=== PATIENT | female | born 1940 | race Caucasian/White ===

== ENCOUNTER 2016-07-19 22:32 | Inpatient (IN) | payer OTHER, MEDICARE ==
--- NOTE | 2016-07-19 22:34 | ED Physician Chart ---
Chief Complaint/HPI - Patient Information Date Seen:: 07/19/16 Time Seen:: 22:34 Chief Complaint:: high blood pressure History of Present Illness:: 75-year-old female with history of high blood pressure, complains of acute, severe, elevated blood pressure that she noticed about one hour ago. Took what may have been lisinopril 10 mg about 30 minutes prior to arrival but the elevated blood pressure has persisted. He also has associated acute, severe, 10 out of 10, nonradiating, headache 1 hour. Also has some slight chest pain and dizziness. Denies nausea, vomiting, acute vision changes, diaphoresis. Historian:: Patient Review:: Nurse's Note Reviewed Review of Systems - Review of Systems Other: Complete system review otherwise unremarkable except as noted in history of present illness. Past Medical History - Past Medical History Past Medical History: HTN, Other (history of colon cancer) Family History: None Social History: Non Smoker, No Alcohol, No Drug Use, Other Surgical History: other (bilateral cataract surgery) Psychiatricy History: None Medication: Reviewed Family Medical History - Family Member Mother History Unknown: Yes Ethnicity: Living Status: Physical Exam - Physical Examination Other:: INITIAL VITAL SIGNS: Reviewed by me GENERAL: Alert and interactive. No acute distress HEAD: Head is normocephalic and atraumatic EYES: EOMI. PERRL. No scleral icterus. No conjunctival injection ENT: Moist mucous membranes. NECK: Supple. No masses. Full range of motion RESPIRATORY: No tachypnea. Clear breath sounds bilaterally. No wheezing, rales, or rhonchi CV: Regular rate and rhythm. No murmurs, rubs, or gallops ABDOMEN: Soft, non-distended, non-tender. No guarding. No rebound. No masses. EXTREMITIES: No deformity. No cyanosis. No edema. SKIN: Warm and dry. No obvious rashes. NEUROLOGIC: Alert and oriented. Face is symmetric. Speech is normal. Moves all extremities equally. Motor and sensory distally intact. Labs/Radiology/EKG Results - Lab Results Results: Lab Results 07/19/16 07/19/16 07/19/16 Range/Units 22:45 22:45 22:45 WBC 7.4 (4.8-10.8) Th/cmm RBC 3.92 (3.80-5.20) Mil/cmm Hgb 13.2 (11.7-16.1) gm/dL Hct 39.7 (35.0-45.0) % MCV 101.2 H (81-100) fl MCH 33.6 H (27.0-31.0) pg MCHC Differential 33.2 (28.0-36.0) pg RDW 12.2 (11.5-20.0) % Plt Count 187 (150-400) Th/cmm MPV 8.4 fl Neutrophils % 36.3 L (40.0-80.0) % Lymphocytes % 51.3 H (20.0-50.0) % Monocytes % 10.9 H (2.0-10.0) % Eosinophils % 1.2 (0.0-5.0) % Basophils % 0.3 (0.0-2.0) % PT 9.8 (9.5-11.5) SECONDS INR 0.94 (0.5-1.4) Sodium 134 L (136-145) mEq/L Potassium 3.6 (3.5-5.1) mEq/L Chloride 100 (98-107) mEq/L Carbon Dioxide 27.7 (21.0-31.0) mEq/L Anion Gap 9.9 (7.0-16.0) BUN 19 (7-25) mg/dL Creatinine 0.7 (0.6-1.2) mg/dL Est GFR ( Amer) TNP Est GFR (Non-Af Amer) TNP BUN/Creatinine Ratio 27.1 Glucose 131 H (70-105) mg/dL Calcium 10.1 (8.6-10.3) mg/dL Total Bilirubin 0.4 (0.3-1.0) mg/dL AST 52 H (13-39) U/L ALT 61 H (7-52) U/L Alkaline Phosphatase 109 H (34-104) U/L Creatine Kinase 240 H (30-223) U/L Troponin I (0.01-0.05) ng/mL B-Natriuretic Peptide (5.0-100.0) pg/mL Total Protein 7.9 (6.0-8.3) gm/dL Albumin 4.4 (3.7-5.3) gm/dL Globulin 3.5 gm/dL Albumin/Globulin Ratio 1.3 (1.0-1.8) Triglycerides 166 H (<150) mg/dL Cholesterol 169 (<200) mg/dL LDL Cholesterol Direct 102 (75-193) mg/dL HDL Cholesterol 52 (23-92) mg/dL 07/19/16 Range/Units 22:45 WBC (4.8-10.8) Th/cmm RBC (3.80-5.20) Mil/cmm Hgb (11.7-16.1) gm/dL Hct (35.0-45.0) % MCV (81-100) fl MCH (27.0-31.0) pg MCHC Differential (28.0-36.0) pg RDW (11.5-20.0) % Plt Count (150-400) Th/cmm MPV fl Neutrophils % (40.0-80.0) % Lymphocytes % (20.0-50.0) % Monocytes % (2.0-10.0) % Eosinophils % (0.0-5.0) % Basophils % (0.0-2.0) % PT (9.5-11.5) SECONDS INR (0.5-1.4) Sodium (136-145) mEq/L Potassium (3.5-5.1) mEq/L Chloride (98-107) mEq/L Carbon Dioxide (21.0-31.0) mEq/L Anion Gap (7.0-16.0) BUN (7-25) mg/dL Creatinine (0.6-1.2) mg/dL Est GFR ( Amer) Est GFR (Non-Af Amer) BUN/Creatinine Ratio Glucose (70-105) mg/dL Calcium (8.6-10.3) mg/dL Total Bilirubin (0.3-1.0) mg/dL AST (13-39) U/L ALT (7-52) U/L Alkaline Phosphatase (34-104) U/L Creatine Kinase (30-223) U/L Troponin I 0.01 (0.01-0.05) ng/mL B-Natriuretic Peptide 55.4 (5.0-100.0) pg/mL Total Protein (6.0-8.3) gm/dL Albumin (3.7-5.3) gm/dL Globulin gm/dL Albumin/Globulin Ratio (1.0-1.8) Triglycerides (<150) mg/dL Cholesterol (<200) mg/dL LDL Cholesterol Direct (75-193) mg/dL HDL Cholesterol (23-92) mg/dL - Radiology Results Comments:: Single AP VIEW Portable Chest X-ray was interpreted independently and contemporaneously by Debby Meyer MD: No cardiomegaly Normal mediastinum No lung infiltrates No pneumothorax No soft tissue or bony abnormalities - EKG Interpretations Comments:: 12-lead EKG Interpretation by Debby Meyer MD: Normal Sinus Rhythm with ventricular rate of 84 beats per minute Normal axis Normal intervals No acute ST or T wave changes. No obvious STEMI ED Septic Shock - . Is Septic Shock (SBP<90, OR Lactate>4 mmol\L) present?: No Reassessment (Disposition) - Reassessment Reassessment:: Hypertensive urgency. Blood pressure systolic greater than 200 systolic. Patient has severe headache. Give morphine IV. Give hydralazine IV. Gave metoprolol by mouth. Blood pressure remains 195/81 mmHg. Labs negative for troponins. Slight transaminitis unknown significance. CT CT head unremarkable. Chest x-ray unremarkable. EKG normal sinus rhythm with no ST elevations or depressions. Blood pressure remains elevated despite multiple interventions. Patient will need further workup and treatment for persistent hypertensive urgency. Reassessment Condition:: Unchanged - Diagnosis Diagnosis:: Acute Persistent/uncontrolled hypertensive urgency Acute cephalalgia Transaminitis - Patient Disposition Discharge/Transfer:: Acute Care w/in [facility] Admitting Medical Physician:: Minal Eisenberg Time:: 23:48 Condition at Disposition:: Improved ED Discharge Plan - Patient Disposition Admit/Discharge/Transfer[facility]
[2016-07-19 22:55] LABS: % BASOPHILS 0.3 % (0.0-2.0); % EOSINOPHILS 1.2 % (0.0-5.0); % LYMPHOCYTES 51.3 % (20.0-50.0); % MONOCYTES 10.9 % (2.0-10.0); % NEUTROPHILS 36.3 % (40.0-80.0); HEMATOCRIT 39.7 % (35.0-45.0); HEMOGLOBIN 13.2 gm/dL (11.7-16.1); MEAN CELL VOLUME 101.2 fl (81-100); MEAN CORPUSCULAR HEMOGLOBIN 33.6 pg (27.0-31.0); MEAN CORPUSCULAR HGB CONC 33.2 pg (28.0-36.0); MEAN PLATELET VOLUME 8.4 fl; NEUTROPHILE ABSOLUTE 2.7 Th/cmm (1.8-8.0); PLATELET COUNT 187 Th/cmm (150-400); RED BLOOD COUNT 3.92 Mil/cmm (3.80-5.20); RED CELL DISTRIBUTION WIDTH 12.2 % (11.5-20.0); WHITE BLOOD COUNT 7.4 Th/cmm (4.8-10.8)
[2016-07-19] MEDS ORDERED: Morphine Sulfate 4 mg/mL 1mL Syr IVP STA (22:55)
[2016-07-19] MEDS ORDERED: Morphine Sulfate 4 mg/mL 1mL Syr ONE (23:06)
[2016-07-19 23:12] LABS: INR 0.94 (0.5-1.4); PROTHROMBIN TIME (TEST) 9.8 SECONDS (9.5-11.5)
[2016-07-19 23:18] LABS: ALB/GLOB RATIO 1.3 (1.0-1.8); ALKALINE PHOSPHATASE 109 U/L (34-104); ANION GAP 9.9 (7.0-16.0); BILIRUBIN,TOTAL 0.4 mg/dL (0.3-1.0); BUN - UREA NITROGEN 19 mg/dL (7-25); BUN/CREATININE RATIO 27.1; CALCIUM SERUM 10.1 mg/dL (8.6-10.3); CARBON DIOXIDE 27.7 mEq/L (21.0-31.0); CHLORIDE 100 mEq/L (98-107); CHOLESTEROL 169 mg/dL (<200); CREATININE - SERUM 0.7 mg/dL (0.6-1.2); GLUCOSE 131 mg/dL (70-105); POTASSIUM SERUM 3.6 mEq/L (3.5-5.1); SGOT 52 U/L (13-39); SGPT/ALT 61 U/L (7-52); SODIUM SERUM 134 mEq/L (136-145); TRIGLYCERIDES 166 mg/dL (<150)
[2016-07-19 23:19] LABS: TROP I 0.01 ng/mL (0.01-0.05)
[2016-07-19 23:26] LABS: BNP 55.4 pg/mL (5.0-100.0)
[2016-07-19 23:49] LABS: CREATINE KINASE MB 1.7 ng/mL (0.6-6.3)
[2016-07-20 05:30] LABS: ANION GAP 6.6 (7.0-16.0); BUN - UREA NITROGEN 16 mg/dL (7-25); BUN/CREATININE RATIO 26.7; CALCIUM SERUM 9.5 mg/dL (8.6-10.3); CARBON DIOXIDE 29.6 mEq/L (21.0-31.0); CHLORIDE 105 mEq/L (98-107); CREATININE - SERUM 0.6 mg/dL (0.6-1.2); GLUCOSE 107 mg/dL (70-105); POTASSIUM SERUM 4.2 mEq/L (3.5-5.1); SODIUM SERUM 137 mEq/L (136-145)
[2016-07-20 05:37] LABS: % BASOPHILS 0.1 % (0.0-2.0); % EOSINOPHILS 0.7 % (0.0-5.0); % LYMPHOCYTES 32.4 % (20.0-50.0); % MONOCYTES 9.6 % (2.0-10.0); % NEUTROPHILS 57.2 % (40.0-80.0); HEMATOCRIT 36.7 % (35.0-45.0); HEMOGLOBIN 12.5 gm/dL (11.7-16.1); MEAN CELL VOLUME 100.8 fl (81-100); MEAN CORPUSCULAR HEMOGLOBIN 34.4 pg (27.0-31.0); MEAN CORPUSCULAR HGB CONC 34.1 pg (28.0-36.0); MEAN PLATELET VOLUME 8.7 fl; NEUTROPHILE ABSOLUTE 3.7 Th/cmm (1.8-8.0); PLATELET COUNT 175 Th/cmm (150-400); RED BLOOD COUNT 3.64 Mil/cmm (3.80-5.20); RED CELL DISTRIBUTION WIDTH 12.5 % (11.5-20.0); WHITE BLOOD COUNT 6.4 Th/cmm (4.8-10.8)
[2016-07-20 09:15] VITALS: BP 162/58
--- NOTE | 2016-07-20 10:16 | Diagnostic Imaging Report ---
CT scan of the brain without intravenous contrast HISTORY: Headache There is a normal ventricular system size. There is prominence of cerebral sulci and subarachnoid cisterns reflecting mild atrophy. No acute parenchymal abnormalities. No intracerebral hemorrhage. No mass effect or shift of midline structures. No extra-axial masses or abnormal fluid collections. An approximate 2.0 cm round density noted within the left maxillary sinus consistent with mucosal polyp or cyst. IMPRESSION: 1. No acute intracerebral abnormalities 2. Mild cerebral atrophy 3. Intraluminal density within the left maxillary sinus consistent with a mucosal polyp or cyst
--- NOTE | 2016-07-20 10:19 | Diagnostic Imaging Report ---
Portable chest x-ray History: Pain Allowing for portable technique the heart size is normal. No focal pulmonary parenchymal processes. No hilar or mediastinal abnormalities. Impression: No acute abnormalities.
--- NOTE | 2016-07-20 18:00 | History & Physical ---
ADMIT DATE: 07/20/2016 HISTORY OF PRESENT ILLNESS: This is an elderly female, 75-year-old, with history of hypertension, came to the Emergency Room complaining of severe headaches and very high blood pressure, unable to control in the ER, was admitted for uncontrolled hypertension, accelerated hypertension. PAST MEDICAL HISTORY: History of hypertension. SOCIAL HISTORY: Unremarkable. FAMILY HISTORY: Unremarkable. PHYSICAL EXAMINATION: GENERAL: The patient is alert, oriented and not in acute distress. VITAL SIGNS: Stable. HEAD: Normal. ENT: Normal. NECK: Supple and nontender. LUNGS: Clear. CARDIOVASCULAR SYSTEM: S1, S2 heard. ABDOMEN: Soft. Bowel sounds are heard. CENTRAL NERVOUS SYSTEM: Grossly normal. EKG was normal. DIAGNOSES: Hypertensive urgency/emergency ____, history of hypertension, history of cephalgia and history of transaminitis. PLAN: The patient is being admitted. ____ and cardiology doctor will do a cardiac workup and also control the blood pressure. We will have soccer player, Dr. Scott see the patient and I will follow the patient. JOB# [id number]
--- NOTE | 2016-07-21 11:44 | Admit Criteria Form ---
Admit Criteria Forms - Admit Criteria Diagnosis: HEADACHES Clinical Indications for Admission to Inpatient Care (Place 'X' for any and all applicable criteria): Admission is indicated for ANY ONE of the following(1)(2)(3)(4): [X ]I. Inpatient admission required rather than observational care (Also use Headaches: Observation Care as appropriate) because of ANY ONE of the following: [X ]a) Severe pain requiring acute inpatient management [ ]b) Altered mental status that is severe or persistent [ ]c) Vomiting or dehydration that is severe or persistent [ ]d) New-onset focal neurologic deficit that is severe or persistent [X ]e) Hypertension requiring inpatient treatment [ ]f) Severe (new) neurologic findings requiring inpatient care as indicated by ANY ONE of following(9)(10): [ ]1) Papilledema [ ]2) Cerebral edema [ ]3) Mass effect on CT scan [ ]4) Cerebral bleeding, ischemia, or vasospasm(16) [ ]5) Hydrocephalus(17) [ ]6) Uncontrolled seizures [ ]g) IV infusion of anticoagulation, platelet inhibitors vasoactive, or antiarrhythmic medication. [ ]h) Cerebral bleeding, hydrocephalus, or vasospasm monitoring (16) [ ]i) Increased intracranial pressure or cerebral edema monitoring (17) [ ]j) Other condition, treatment or monitoring requiring inpatient admission [ ]II. Unruptured but threatening aneurysm or vascular malformation [ ]III. Venous sinus thrombosis [ ]IV. Increased intracranial pressure [ ]V. Cerebral spinal fluid leak with decreased intracranial pressure [ ]. Medication-overuse headache that has failed all outpatient management options [ ]VII. Vasculitis (eg, giant cell (temporal) arteritis, central nervous system vasculitis) requiring IV corticosteroids, IV antithrombotic therapy, or inpatient monitoring (eg, visual symptoms or findings, other ischemic manifestations)[A](10)(11) Extended stay beyond goal length of stay may be needed for (27): [ ]a) Intractable migraine [ ]b) Subarachnoid or intracranial hemorrhage [ ]c) Malignant hypertension [ ]d) Detoxification from drug withdrawal in medication-overuse headache (29) The [facility] content created by [employer] has been revised. The portions of the content which have been revised are identified through the use of italic text or in bold, and [employer] has neither reviewed nor approved the modified material.All other unmodified content is copyright [facility]. Please see references footnoted in the original [facility] edition 2016 Admit Criteria Met?: Yes
--- NOTE | 2016-07-21 22:57 | Consultation ---
DATE OF CONSULTATION: 07/20/[address] Eisenberg. HISTORY AND PHYSICAL: This 75-year-old female patient came to the Emergency Room with a headache. The patient was found to have uncontrolled hypertension and the patient is admitted. No history of PND or orthopnea. PAST MEDICAL HISTORY: Hypertension. FAMILY HISTORY: Unremarkable. SOCIAL HISTORY: No history of smoking, alcohol abuse. ALLERGIES: None. PHYSICAL EXAMINATION: VITAL SIGNS: Blood pressure on admission was 200/100, pulse 80, respirations 20. HEAD: Normocephalic. No lumps or bumps. EYES: Pupils are equal, reactive to light. Fundi show AV nicking. Sclerae white, conjunctivae pink. NECK: Carotid 2+. Normal upstroke. JVD flat. Thyroid not palpable. Lymph nodes, none palpable. CHEST: Shows increased AP diameter. No kyphosis, scoliosis. LUNGS: Bilateral bronchovesicular breath sounds. HEART: PMI fifth intercostal space with lateral to midclavicular line. S1 and S2. No S3. Soft S4. Systolic murmur, grade 2/6, lower left sternal border without radiation. ABDOMEN: Soft. Liver and spleen not palpable. No organomegaly. Bowel sounds are active. NEUROLOGIC: No focal neurological deficit. EXTREMITIES: Peripheral pulses 1+. No pedal edema. CLINICAL IMPRESSION: Accelerated hypertension. PLAN: We will control the blood pressure, get echocardiogram. Monitor the patient on telemetry bed. JOB# [id number]
== END 2016-07-21 12:00 | disposition left against medical advice (07) | DRG 305 ==
LOC: ER 22:32 → TELE 23:45
PROVIDERS: ADMIT Internal Medicine; ATTEND Internal Medicine
DX: I16.0 Hypertensive urgency (principal); R51 Headache; I10 Essential (primary) hypertension; R74.0 Nonspecific elevation of levels of transaminase and lactic acid dehydrogenase [LDH]; Z98.41 Cataract extraction status, right eye; Z98.42 Cataract extraction status, left eye; Z88.0 Allergy status to penicillin; Z85.038 Personal history of other malignant neoplasm of large intestine
CPT/HCPCS: 36415-UA; 70450-TC; 71010-TC; 80048-TC; 80053-TC; 80061-TC; 82550-TC; 82553; 83880-TC; 84443-TC; 84484-TC; 85025-TC; 85610-TC; 93005; 96374; 96375; J0360; J1644; J2405; Z7502; Z7610